=== PATIENT | male | born 1990 | race Caucasian/White ===

== ENCOUNTER 2018-01-12 22:40 | Emergency (ER) | payer SELFPAY ==
[2018-01-12] MEDS ORDERED: Ketorolac TAB * 10 MG TAB PO PRN (23:50)
[2018-01-12] MEDS ORDERED: Sulfamethox/Trimethoprim DS 800/160* TAB PO ONE (23:56)
[2018-01-12] MEDS ORDERED: Cephalexin CAP* 500 MG PO ONE (23:56)
--- NOTE | 2018-01-13 | ED ---
Lower Extremity - HPI Summary HPI Summary: Complains of pain, spreading erythema after sliver in base of left foot yesterday. Patient states he extracted a unknown foreign body from sole of left foot. Denies fever, cough, sore throat, N/V, CP, SOB, abdominal pain, change in urinary BM. Medical history is none. - History of Current Complaint Chief Complaint: EDExtremityLower Stated Complaint: LT FOOT INJURY Time Seen by Provider: 01/12/18 23:05 Hx Obtained From: Patient Onset of Pain: Immediate Onset/Duration: Hours Severity Initially: Mild Severity Currently: Severe Pain Intensity: 10 Pain Scale Used: 0-10 Numeric Timing: Constant Location: Is Discrete @ Character Of Pain: Sharp Associated Signs And Symptoms: Positive: Redness Aggravating Factor(s): Standing, Weight Bearing Alleviating Factor(s): Rest - Allergies/Home Medications Allergies/Adverse Reactions: Allergies Allergy/AdvReac Type Severity Reaction Status Date / Time bee venom protein (honey bee) Allergy Anaphylatic Verified 01/12/18 22:51 Shock PMH/Surg Hx/FS Hx/Imm Hx Endocrine/Hematology History: Denies: Hx Anticoagulant Therapy, Hx Diabetes, Hx Thyroid Disease Cardiovascular History: Denies: Hx Hypertension Respiratory History: Denies: Hx Asthma, Hx Chronic Obstructive Pulmonary Disease (COPD) GI History: Denies: Hx Ulcer Neurological History: Denies: Hx CVA - Immunization History Immunizations Up to Date: Yes Infectious Disease History: No Infectious Disease History: Denies: Hx Hepatitis, Hx Human Immunodeficiency Virus (HIV), Traveled Outside the [place] in Last 30 Days - Social History Alcohol Use: Weekly Substance Use Type: Reports: Marijuana Smoking Status (MU): Never Smoked Tobacco Review of Systems Constitutional: Negative Eyes: Negative ENT: Negative Cardiovascular: Negative Respiratory: Negative Gastrointestinal: Negative Genitourinary: Negative Musculoskeletal: Negative Skin: Other Neurological: Negative Psychological: Normal All Other Systems Reviewed And Are Negative: Yes Physical Exam - Summary Physical Exam Summary: Area of localized cellulitis on sole of left foot with erythema spreading towards left arch. Tenderness to palpation. No evidence of purulent discharge. No presence of foreign body noted from external palpation. Triage Information Reviewed: Yes Vital Signs On Initial Exam: Initial Vitals Temp Pulse Resp BP Pulse Ox 98.7 F 65 19 153/69 100 01/12/18 22:48 01/12/18 22:48 01/12/18 22:48 01/12/18 22:48 01/12/18 22:48 Vital Signs Reviewed: Yes Appearance: Positive: Well-Appearing Skin: Positive: Warm Head/Face: Positive: Normal Head/Face Inspection Eyes: Positive: Normal Neck: Positive: Supple Respiratory/Lung Sounds: Positive: Clear to Auscultation Cardiovascular: Positive: Normal Abdomen Description: Positive: Nontender Musculoskeletal: Positive: Normal Neurological: Positive: Normal Psychiatric: Positive: Normal AVPU Assessment: Alert - [place] Coma Scale Best Eye Response: 4 - Spontaneous Best Motor Response: 6 - Obeys Commands Best Verbal Response: 5 - Oriented Coma Scale Total: 15 Diagnostics - Vital Signs Vital Signs Temp Pulse Resp BP Pulse Ox 01/12/18 22:48 98.7 F 65 19 153/69 100 - Laboratory Lab Statement: Any lab studies that have been ordered have been reviewed, and results considered in the medical decision making process. - Radiology foot Xray Interpretation: No Acute Changes - No foreign body noted Radiology Interpretation Completed By: ED Physician Lower Extremity Course/Dx - Course Course Of Treatment: Complains of pain, spreading erythema after sliver in base of left foot yesterday. Patient states he extracted a unknown foreign body from sole of left foot. Denies fever, cough, sore throat, N/V, CP, SOB, abdominal pain, change in urinary BM. Medical history is none. PE: Area of localized cellulitis on sole of left foot with erythema spreading towards left arch. Tenderness to palpation. No evidence of purulent discharge. No presence of foreign body noted from external palpation. Discussed patient with Dr. york who recommends Rx for Bactrim and Keflex. Patient started on Keflex and Bactrim here in the ED tonight. - Diagnoses Provider Diagnoses: Cellulitis Discharge - Sign-Out/Discharge Documenting (check all that apply): Patient Departure - Discharge Plan Condition: Stable Disposition: HOME Prescriptions: Cephalexin CAP* [Keflex CAP*] 500 mg PO TID 10 Days #30 cap Ketorolac TAB * [Toradol TAB *] 10 mg PO Q6H #16 tab Sulfamethox/Trimethoprim DS* [Bactrim DS 800/160 TAB*] 1 tab PO BID 10 Days #20 tab Patient Education Materials: Cellulitis (ED) Referrals: No Primary Care Phys,NOPCP [Primary Care Provider] - Rolf Ramos DPM [Doctor of Podiatric Medicine] - Additional Instructions: Take antibiotics as directed. Keep protected. If symptoms persist longer than 2-3 days follow-up with podiatry Dr Ramos Return to ED for any new or worsening symptoms - Billing Disposition and Condition Condition: STABLE Disposition: Home
[2018-01-13] MEDS ORDERED: Ibuprofen TAB* 600 MG ONE (00:27)
[2018-01-13 00:42] VITALS: BP 123/71
--- NOTE | 2018-01-13 09:30 | RAD ---
INDICATION: "Sliver" to the "bottom center of left foot". COMPARISON: None. TECHNIQUE: 3 views of the left foot were obtained. FINDINGS: The adequately corticated bones are properly aligned. Joint spaces appear maintained. No fracture, dislocation or focal bony abnormality is seen. IMPRESSION: Normal radiograph of the left foot. If the patient's symptoms persist, follow-up imaging is recommended.
== END 2018-01-13 00:30 | disposition home or self-care (01) ==
LOC: ED 22:40
DX: L03.116 Cellulitis of left lower limb (principal); Z91.030 Bee allergy status
CPT/HCPCS: 99282; A9270-GY

== ENCOUNTER 2018-07-03 23:55 | Emergency (ER) | payer BC ==
[2018-07-04] MEDS ORDERED: Ondansetron ODT TAB* 4 MG PO ONE (00:38)
[2018-07-04] MEDS ORDERED: NS 0.9% 1000 ML* 1,000 ML IV ONE (00:38)
[2018-07-04] MEDS ORDERED: Ondansetron INJ* 2 MG/ML VIAL ONE (00:44)
[2018-07-04] MEDS ORDERED: Ondansetron INJ* 2 MG/ML VIAL IV ONE (00:50)
[2018-07-04 01:06] LABS: Hematocrit 52 % (42-52); Hemoglobin 17.5 g/dl (14.0-18.0); Mean Corpuscular HGB Conc 33 g/dl (31-36); Mean Corpuscular Hemoglobin 31 pg (27-31); Mean Corpuscular Volume 92 fL (80-94); Mean Platelet Volume 7.1 fL (7.4-10.4); Platelet Count 252 10^3/ul (150-450); Red Blood Count 5.71 10^6/ul (4.00-5.40); Red Cell Distribution Width 13 % (10.5-15); White Blood Count 19.7 10^3/ul (3.5-10.8)
[2018-07-04] MEDS ORDERED: Metoclopramide IV* 5 MG/ML 2 ML VIAL ONE (01:18)
[2018-07-04] MEDS ORDERED: Metoclopramide IV* 5 MG/ML 2 ML VIAL IV ONE (01:18)
[2018-07-04 01:20] LABS: Albumin 5.1 g/dL (3.2-5.2); Albumin/Globulin Ratio 1.9 (1-3); BUN/Creatinine Ratio 19.4 (8-20); C Reactive Protein 5.17 mg/L (<8.01); Calcium 10.4 mg/dL (8.6-10.3); Globulin 2.7 g/dL (2-4); Potassium 4.1 mmol/L (3.5-5.0); Total Bilirubin 0.9 mg/dL (0.2-1.0); Total Protein 7.8 g/dL (6.4-8.9)
[2018-07-04 01:31] LABS: ABS Basophils 0 10^3/ul (0-0.2); ABS Eosinophils 0 10^3/ul (0-0.6); ABS Lymphocytes 0.5 10^3/ul (1.0-4.8); ABS Monocytes 0.8 10^3/ul (0-0.8); ABS Neutrophils 18.3 10^3/ul (1.5-7.7); ABS Nucleated RBC 0 10^3/ul; Eosinophil % 0.1 %; Lymphocyte % 2.4 %; Nucleated Red Blood Cells % 0
--- NOTE | 2018-07-04 02:11 | ED ---
Nausea/Vomiting/Diarrhea HPI - HPI Summary HPI Summary: Patient complains of sudden onset nausea vomiting and diarrhea starting at 6:30 PM today. States he was feeling fine before. Denies foreign travel, contact exposure, unusual food, fever, cough, sore throat, CP, SOB, abdominal pain, change in urine. Medical history is none. Abdominal surgical history is none. - History of Current Complaint Chief Complaint: EDNauseaVomitDiarrh Stated Complaint: VOMITING Time Seen by Provider: 07/04/18 00:33 Hx Obtained From: Patient Onset/Duration: Sudden Onset, Lasting Hours Severity Currently: None Pain Intensity: 0 Pain Scale Used: 0-10 Numeric Aggravating Factor(s): Nothing Alleviating Factor(s): Nothing Nausea/Vomiting Presence: Nauseated, Vomiting Vomiting Frequency: Every 15-60 minutes Nausea/Vomiting Duration: 0-12 hours Vomiting Characteristics: Nonbilious Diarrhea Presence: Yes Diarrhea Frequency: Every 15-60 minutes Diarrhea Duration: 0-12 hours Diarrhea Characteristics: Watery - Allergies/Home Medications Allergies/Adverse Reactions: Allergies Allergy/AdvReac Type Severity Reaction Status Date / Time bee venom protein (honey bee) Allergy Anaphylatic Verified 07/04/18 00:03 Shock PMH/Surg Hx/FS Hx/Imm Hx Endocrine/Hematology History: Denies: Hx Anticoagulant Therapy, Hx Diabetes, Hx Thyroid Disease Cardiovascular History: Denies: Hx Hypertension Respiratory History: Denies: Hx Asthma, Hx Chronic Obstructive Pulmonary Disease (COPD) GI History: Denies: Hx Ulcer History: Denies: Hx Dialysis Sensory History: Denies: Hx Eye Prosthesis Neurological History: Denies: Hx CVA, Hx Developmental Delay Psychiatric History: Denies: Hx Autism Infectious Disease History: No Infectious Disease History: Denies: Hx Hepatitis, Hx Human Immunodeficiency Virus (HIV), Traveled Outside the [place] in Last 30 Days - Social History Alcohol Use: Weekly Substance Use Type: Reports: Marijuana Smoking Status (MU): Never Smoked Tobacco Review of Systems Constitutional: Negative Eyes: Negative ENT: Negative Cardiovascular: Negative Respiratory: Negative Positive: Vomiting, Diarrhea, Nausea Genitourinary: Negative Musculoskeletal: Negative Skin: Negative Neurological: Negative Psychological: Normal All Other Systems Reviewed And Are Negative: Yes Physical Exam - Summary Physical Exam Summary: Abdominal exam unremarkable. Active N/V here in the ED. No active diarrhea. Triage Information Reviewed: Yes Vital Signs On Initial Exam: Initial Vitals Temp Pulse Resp BP Pulse Ox 95.4 F 88 18 139/110 100 07/03/18 23:59 07/03/18 23:59 07/03/18 23:59 07/03/18 23:59 07/03/18 23:59 Vital Signs Reviewed: Yes Appearance: Positive: Well-Appearing Skin: Positive: Warm Head/Face: Positive: Normal Head/Face Inspection Eyes: Positive: Normal Neck: Positive: Supple Respiratory/Lung Sounds: Positive: Clear to Auscultation Cardiovascular: Positive: Normal Abdomen Description: Positive: Nontender Musculoskeletal: Positive: Normal Neurological: Positive: Normal Psychiatric: Positive: Normal AVPU Assessment: Alert - [place] Coma Scale Best Eye Response: 4 - Spontaneous Best Motor Response: 6 - Obeys Commands Best Verbal Response: 5 - Oriented Coma Scale Total: 15 Diagnostics - Vital Signs Vital Signs Temp Pulse Resp BP Pulse Ox 07/04/18 01:04 68 100 07/04/18 00:31 77 170/114 99 07/04/18 00:30 85 100 07/03/18 23:59 95.4 F 88 18 139/110 100 - Laboratory Lab Results: Lab Results 07/04/18 07/04/18 Range/Units 00:58 00:58 WBC 19.7 H (3.5-10.8) 10^3/ul RBC 5.71 H (4.00-5.40) 10^6/ul Hgb 17.5 (14.0-18.0) g/dl Hct 52 (42-52) % MCV 92 (80-94) fL MCH 31 (27-31) pg MCHC 33 (31-36) g/dl RDW 13 (10.5-15) % Plt Count 252 (150-450) 10^3/ul MPV 7.1 L (7.4-10.4) fL Neut % (Auto) 93.1 % Lymph % (Auto) 2.4 % [place] % (Auto) 4.2 % Eos % (Auto) 0.1 % Baso % (Auto) 0.2 % Absolute Neuts (auto) 18.3 H (1.5-7.7) 10^3/ul Absolute Lymphs (auto) 0.5 L (1.0-4.8) 10^3/ul Absolute Monos (auto) 0.8 (0-0.8) 10^3/ul Absolute Eos (auto) 0 (0-0.6) 10^3/ul Absolute Basos (auto) 0 (0-0.2) 10^3/ul Absolute Nucleated RBC 0 10^3/ul Nucleated RBC % 0 Sodium 137 (135-145) mmol/L Potassium 4.1 (3.5-5.0) mmol/L Chloride 100 L (101-111) mmol/L Carbon Dioxide 23 (22-32) mmol/L Anion Gap 14 H (2-11) mmol/L BUN 20 (6-24) mg/dL Creatinine 1.03 (0.67-1.17) mg/dL Est GFR ( Amer) 104.0 (>60) Est GFR (Non-Af Amer) 86.0 (>60) BUN/Creatinine Ratio 19.4 (8-20) Glucose 185 H (70-100) mg/dL Calcium 10.4 H (8.6-10.3) mg/dL Total Bilirubin 0.90 (0.2-1.0) mg/dL AST 35 (13-39) U/L ALT 28 (7-52) U/L Alkaline Phosphatase 87 (34-104) U/L C-Reactive Protein 5.17 (<8.01) mg/L Total Protein 7.8 (6.4-8.9) g/dL Albumin 5.1 (3.2-5.2) g/dL Globulin 2.7 (2-4) g/dL Albumin/Globulin Ratio 1.9 (1-3) Result Diagrams: 07/04/18 00:58 07/04/18 00:58 Lab Statement: Any lab studies that have been ordered have been reviewed, and results considered in the medical decision making process. Naus/Vom/Diarrhea Course/Dx - Course Course Of Treatment: Patient complains of sudden onset nausea vomiting and diarrhea starting at 6:30 PM today. States he was feeling fine before. Denies foreign travel, contact exposure, unusual food, fever, cough, sore throat, CP, SOB, abdominal pain, change in urine. Medical history is none. Abdominal surgical history is none. Physical exam:Abdominal exam unremarkable. Active N/ V here in the ED. No active diarrhea. Vital signs within normal limits. WBC 19.7. Anion gap 14. N/V controlled with Zofran ODT 4 mg and Reglan 10 mg IV. 2 L of fluid given. Discussed patient with Dr. Gonzalez . Placed on medical history, physical exam. Patient could be discharged home with antiemetic medication. Patient understands and approves of plan. - Differential Dx/Diagnosis Provider Diagnosis: Nausea vomiting and diarrhea Condition At Discharge: Stable Discharge - Sign-Out/Discharge Documenting (check all that apply): Patient Departure - Discharge Plan Condition: Stable Disposition: HOME Prescriptions: Metoclopramide TAB* [Reglan TAB*] 5 mg PO Q6H PRN 3 Days #12 tab PRN Reason: Nausea Ondansetron ODT TAB* [Zofran 4 MG Odt TAB*] 4 mg PO Q8H PRN 4 Days #14 tab.odt PRN Reason: Nausea Patient Education Materials: Acute Nausea and Vomiting (ED), Acute Diarrhea (ED ) Referrals: No Primary Care Phys,NOPCP [Primary Care Provider] - [facility] [Outside] Additional Instructions: Drink plenty of fluids to maintain hydration. Take Zofran under the tongue every 8 hours. If if nausea and vomiting not controlled you may add Reglan 10 mg by mouth every 6 hours. Return to the ED for any new or worsening symptoms - Billing Disposition and Condition Condition: STABLE Disposition: Home
[2018-07-04] MEDS ORDERED: Metoclopramide TAB* 10 MG PO ONE (02:17)
[2018-07-04 03:48] VITALS: BP 156/76
== END 2018-07-04 03:49 | disposition home or self-care (01) ==
LOC: ED 23:55
DX: R11.2 Nausea with vomiting, unspecified (principal); R19.7 Diarrhea, unspecified
CPT/HCPCS: 36415; 80053; 85025; 86140; 96361; 96374; 99283; A9270-GY; J2405; J2765

== ENCOUNTER 2018-09-27 15:09 | Emergency (ER) | payer BC ==
[2018-09-27 15:17] VITALS: BP 146/88
--- NOTE | 2018-09-27 15:33 | UC ---
UC General HPI - HPI Summary HPI Summary: 28-year-old male comes in wishing to be checked for STI's. He's asymptomatic. He does not know of any of his partners that have been positive for any STI. No fevers chills feels well. No rashes no lesions. - History of Current Complaint Chief Complaint: UCGeneralIllness Stated Complaint: STD TESTING Time Seen by Provider: 09/27/18 15:20 Pain Intensity: 0 - Allergy/Home Medications Allergies/Adverse Reactions: Allergies Allergy/AdvReac Type Severity Reaction Status Date / Time bee venom protein (honey bee) Allergy Anaphylatic Verified 09/27/18 15:17 Shock Home Medications: Home Medications EPINEPHrine [Epipen 2-Rajesh] 0.3 mg INJ ONCE 09/27/18 [History Confirmed 09/27/18] PMH/Surg Hx/FS Hx/Imm Hx Previously Healthy: Yes Other History Of: Negative For: Anticoagulant Therapy - Surgical History Surgical History: None - Family History Known Family History: Positive: Non-Contributory - Social History Alcohol Use: Daily Substance Use Type: Marijuana Substance Use Comment - Amount & Last Used: weekly Smoking Status (MU): Current Some Day Smoker Type: Cigars Review of Systems All Other Systems Reviewed And Are Negative: Yes Constitutional: Positive: Negative Skin: Positive: Negative Eyes: Positive: Negative ENT: Positive: Negative Respiratory: Positive: Negative Cardiovascular: Positive: Negative Gastrointestinal: Positive: Negative Genitourinary: Positive: Negative. Negative: Dysuria, Frequency, Urgency, Vaginal/Penile Burning, Vaginal/Penile Itching, Vaginal/Penile Discharge, Vaginal/Penile Pain, Vaginal/Penile Tenderness, Ulceration/Lesion Motor: Positive: Negative Neurovascular: Positive: Negative Musculoskeletal: Positive: Negative Neurological: Positive: Negative Psychological: Positive: Negative Is Patient Immunocompromised?: No Physical Exam Triage Information Reviewed: Yes Appearance: Well-Appearing, No Pain Distress, Well-Nourished Vital Signs: Initial Vital Signs Temp 98.8 F 09/27/18 15:12 Pulse 85 09/27/18 15:12 Resp 16 09/27/18 15:12 BP 146/88 09/27/18 15:12 Pulse Ox 97 09/27/18 15:12 Vital Signs Reviewed: Yes Eye Exam: Normal Eyes: Positive: Conjunctiva Clear Neck exam: Normal Neck: Positive: Supple Respiratory: Positive: Lungs clear, Normal breath sounds, No respiratory distress Cardiovascular: Positive: RRR Abdomen Description: Positive: Nontender, Soft Bowel Sounds: Positive: Present Musculoskeletal Exam: Normal Musculoskeletal: Positive: Strength Intact, ROM Intact Neurological Exam: Normal Neurological: Positive: Alert, Muscle Tone Normal Psychological Exam: Normal Psychological: Positive: Age Appropriate Behavior Skin Exam: Normal Course/Dx - Diagnoses Provider Diagnosis: Routine screening for STI (sexually transmitted infection) Discharge - Sign-Out/Discharge Documenting (check all that apply): Patient Departure All imaging exams completed and their final reports reviewed: No Studies - Discharge Plan Condition: Stable Disposition: HOME Patient Education Materials: Safe Sex (ED) Ref[place]: [facility] [facility] [place]] Additional Instructions: FOLLOW UP WITH YOUR DOCTOR NEEDED. GET REEVALUATED SOONER IF YOUR CONDITION WORSENS OR ANY QUESTIONS OR CONCERNS. - Billing Disposition and Condition Condition: STABLE Disposition: Home
[2018-09-28 13:11] LABS: Hepatitis B Surface Antigen Nonreactive (Nonreactive)
[2018-09-28 13:32] LABS: Hepatitis C Antibody Nonreactive (Nonreactive)
--- NOTE | 2018-09-29 07:15 | UC ---
- Progress Note Progress Note: labs reviewed today Syphilis nonreactive, hepatitis B surface antigen nonreactive Hepatitis B core IgM and hepatitis A antibody IgM pending at this time At HCV indexe nonreactive HIV 1 and 2 antibody nonreactive Await final results No change in plan at this time. Course/Dx - Diagnoses Provider Diagnoses: Routine screening for STI (sexually transmitted infection) Discharge - Sign-Out/Discharge Documenting (check all that apply): Post-Discharge Follow Up All imaging exams completed and their final reports reviewed: No Studies - Discharge Plan Condition: Stable Disposition: HOME Patient Education Materials: Safe Sex (ED) Referrals: [facility] [place] [facility] [Outside] Additional Instructions: FOLLOW UP WITH YOUR DOCTOR NEEDED. GET REEVALUATED SOONER IF YOUR CONDITION WORSENS OR ANY QUESTIONS OR CONCERNS. - Billing Disposition and Condition Condition: STABLE Disposition: Home
[2018-09-30 13:20] LABS: Neisseria gonorrhoeae (GC) RNA Negative (Negative)
--- NOTE | 2018-09-30 16:15 | UC ---
- Progress Note Progress Note: 09/30/2018 GC/chlamydia : negative No change Juana Antonio PA-C Course/Dx - Diagnoses Provider Diagnoses: Routine screening for STI (sexually transmitted infection) Discharge - Sign-Out/Discharge Documenting (check all that apply): Post-Discharge Follow Up All imaging exams completed and their final reports reviewed: No Studies - Discharge Plan Condition: Stable Disposition: HOME Patient Education Materials: Safe Sex (ED) Referrals: [facility] [place] [facility] [Outside] Additional Instructions: FOLLOW UP WITH YOUR DOCTOR NEEDED. GET REEVALUATED SOONER IF YOUR CONDITION WORSENS OR ANY QUESTIONS OR CONCERNS. - Billing Disposition and Condition Condition: STABLE Disposition: Home
== END 2018-09-27 15:45 | disposition home or self-care (01) ==
LOC: UCEAST 15:09
DX: Z11.3 Encounter for screening for infections with a predominantly sexual mode of transmission (principal); F17.290 Nicotine dependence, other tobacco product, uncomplicated
CPT/HCPCS: 36415; 80074; 86592; 86703; 87491; 87591; 99211; G0463

== ENCOUNTER 2019-07-07 12:40 | Emergency (ER) | payer BC ==
[2019-07-07] MEDS ORDERED: Ondansetron INJ* 2 MG/ML VIAL IV ONE (13:04)
--- NOTE | 2019-07-07 13:08 | ED ---
Abdominal Pain/Male - HPI Summary HPI Summary: 29 y/o male presented to [facility] complaining of diffuse cramping abdominal pain present since 0130 today, 07/07/19. He feels nauseous and is dehydrated, noting a dry mouth. He also notes that he cannot even sip water without vomiting. He has not urinated recently and notes no congestion or cough. Symptoms currently rated 3/10 in severity. No previous similar episodes. No medications for treatment [employer]. - History of Current Complaint Chief Complaint: EDNauseaVomitDiarrh Stated Complaint: VOMITING/DIARREA PER PT Time Seen by Provider: 07/07/19 12:59 Hx Obtained From: Patient Onset/Duration: Lasting Hours, Still Present Timing: Lasting Hours Severity Currently: Mild Pain Intensity: 3 Pain Scale Used: 0-10 Numeric Location: Diffuse Character: Cramping Aggravating Factor(s): Food Alleviating Factor(s): Nothing Associated Signs And Symptoms: Positive: Urinary Symptoms - decreased urine output, Nausea, Vomiting, Other - positive dehydration, negative congestion. Negative: Cough - Allergies/Home Medications Allergies/Adverse Reactions: Allergies Allergy/AdvReac Type Severity Reaction Status Date / Time bee venom protein (honey bee) Allergy Anaphylatic Verified 07/07/19 12:46 Shock Home Medications: Home Medications Protein Supplement [Protein] 975 mg PO DAILY 07/07/19 [History Confirmed ] PMH/Surg Hx/FS Hx/Imm Hx Endocrine/Hematology History: Denies: Hx Anticoagulant Therapy, Hx Diabetes, Hx Thyroid Disease Cardiovascular History: Denies: Hx Hypertension Respiratory History: Denies: Hx Asthma, Hx Chronic Obstructive Pulmonary Disease (COPD) GI History: Denies: Hx Ulcer History: Denies: Hx Dialysis Sensory History: Denies: Hx Eye Prosthesis Opthamlomology History: Denies: Hx Eye Prosthesis Neurological History: Denies: Hx CVA, Hx Developmental Delay Psychiatric History: Denies: Hx Autism - Surgical History Surgical History: None Surgery Procedure, Year, and Place: none Infectious Disease History: No Infectious Disease History: Denies: Hx Hepatitis, Hx Human Immunodeficiency Virus (HIV), Traveled Outside the [place] in Last 30 Days - Family History Known Family History: Positive: Hypertension, Diabetes - grandfather, mother - Social History Alcohol Use: Daily Hx Substance Use: Yes Substance Use Type: Reports: Marijuana Substance Use Comment - Amount & Last Used: weekly Hx Tobacco Use: Yes Smoking Status (MU): Current Some Day Smoker Type: Cigars Review of Systems Positive: Other - dehydration Positive: Other - negative congestion Negative: Cough Positive: Abdominal Pain - cramping, Vomiting, Nausea Positive: other - decreased urine output All Other Systems Reviewed And Are Negative: Yes Physical Exam - Summary Physical Exam Summary: Appearance: The patient is well-nourished in no acute distress and in no acute pain. Skin: The skin is warm and dry, and skin color reflects adequate perfusion. HEENT: The head is normocephalic and atraumatic. The pupils are equal and reactive. The conjunctivae are clear and without drainage. Nares are patent and without drainage. Mouth reveals moist mucous membranes, and the throat is without erythema and exudate. The external ears are intact. The ear canals are patent and without drainage. The tympanic membranes are intact. Neck: The neck is supple with full range of motion and non-tender. There are no carotid bruits. There is no neck vein distension. Respiratory: Chest is non-tender. Lungs are clear to auscultation and breath sounds are symmetrical and equal. Cardiovascular: Heart is regular rate and rhythm. There is no murmur or rub auscultated. There is no peripheral edema and pulses are symmetrical and equal. Abdomen: The abdomen is soft and non-tender. There are normal bowel sounds heard in all four quadrants and there is no organomegaly palpated. Musculoskeletal: There is no back tenderness noted. Extremities are non-tender with full range of motion. There is good capillary refill. There is no peripheral edema or calf tenderness elicited. Neurological: Patient is alert and oriented to person, place and time. The patient has symmetrical motor strength in all four extremities. Cranial nerves are grossly intact. Deep tendon reflexes are symmetrical and equal in all four extremities. Psychiatric: The patient has an appropriate affect and does not exhibit any anxiety or depression. Triage Information Reviewed: Yes Vital Signs On Initial Exam: Initial Vitals Temp Pulse Resp BP Pulse Ox 99.6 F 82 16 174/107 100 07/07/19 12:43 07/07/19 12:43 07/07/19 12:43 07/07/19 12:43 07/07/19 12:43 Vital Signs Reviewed: Yes Procedures - Sedation Patient Received Moderate/Deep Sedation with Procedure: No Diagnostics - Vital Signs Vital Signs Temp Pulse Resp BP Pulse Ox 01/06/20 12:43 99.6 F 82 16 174/107 100 - Laboratory Result Diagrams: 07/07/19 13:09 07/07/19 13:09 Lab Statement: Any lab studies that have been ordered have been reviewed, and results considered in the medical decision making process. Abdominal Pain Male Course/Dx - Course Course Of Treatment: Mr. Malloy presented with several days of nausea vomiting diarrhea. His abdomen was sore but this was a minor complaint. He was nontoxic in appearance with stable vital he was given IV fluids and Zofran while labs were obtained. He felt very much improved after the medications and fluids and I will give him a prescription for Zofran in case any of his nausea returns. - Diagnoses Provider Diagnoses: Gastroenteritis Discharge ED - Sign-Out/Discharge Documenting (check all that apply): Patient Departure - dc - Discharge Plan Condition: Stable Disposition: HOME Prescriptions: Ondansetron ODT TAB* [Zofran Odt TAB*] 4 mg PO Q6H PRN #20 tab.odt PRN Reason: Nausea/Vomiting Patient Education Materials: Gastroenteritis (ED) Referrals: Jerry Ireland NP [Primary Care Provider] - Additional Instructions: Follow up with your primary care provider in 1-3 days. If you experience new or worsening symptoms please return to the ER. - Billing Disposition and Condition Condition: STABLE Disposition: Home - Attestation Statements Document Initiated by [facility]: Yes Documenting Scribe: Jordana Pizarro Provider For Whom [facility] is Documenting (Include Credential): Adrian Ford MD Scribmarianne Attestation: Jordana Castro scribed for Adrian Ford MD on 07/07/19 at 2006. Scribe Documentation Reviewed: Yes Provider Attestation: The documentation as recorded by the Jordana lutz accurately reflects the service I personally performed and the decisions made by me, Adrian Ford MD Status of [facility] Document: Viewed
[2019-07-07 13:27] LABS: ABS Lymphocytes 0.2 10^3/ul (1.0-4.8); ABS Monocytes 1.1 10^3/ul (0-0.8); ABS Neutrophils 14.1 10^3/ul (1.5-7.7); Hematocrit 51 % (42-52); Hemoglobin 17.3 g/dL (14.0-18.0); Lymphocyte % 1.6 %; Mean Corpuscular HGB Conc 34 g/dL (31-36); Mean Corpuscular Hemoglobin 31 pg (27-31); Mean Corpuscular Volume 91 fL (80-94); Mean Platelet Volume 7.3 fL (7.4-10.4); Nucleated Red Blood Cells % 0.1; Platelet Count 251 10^3/uL (150-450); Red Blood Count 5.59 10^6 /uL (4.18-5.48); Red Cell Distribution Width 13 % (10-15); White Blood Count 15.5 10^3/uL (3.5-10.8)
[2019-07-07] MEDS: NS 0.9% 1000 ML** 2,000 ML IV ONE ×2 (13:27→14:50)
[2019-07-07 13:46] LABS: ALT 34 U/L (7-52); AST 39 U/L (13-39); Albumin 4.9 g/dL (3.2-5.2); Alkaline Phosphatase 75 U/L (34-104); Anion Gap 13 mmol/L (2-11); BUN/Creatinine Ratio 18.5 (8-20); Blood Urea Nitrogen 20 mg/dL (6-24); C Reactive Protein 25.87 mg/L (<8.01); CO2 Carbon Dioxide 21 mmol/L (22-32); Calcium 9.8 mg/dL (8.6-10.3); Chloride 104 mmol/L (101-111); EGFR African American 97.8 (>60); EGFR Non-African American 80.8 (>60); Globulin 2.4 g/dL (2-4); Glucose 179 mg/dL (70-100); Potassium 3.8 mmol/L (3.5-5.0); Sodium 138 mmol/L (135-145); Total Protein 7.3 g/dL (6.4-8.9)
[2019-07-07 15:43] VITALS: BP 142/79
== END 2019-07-07 16:07 | disposition home or self-care (01) ==
LOC: ED 12:40
DX: K52.9 Noninfective gastroenteritis and colitis, unspecified (principal); Z79.899 Other long term (current) drug therapy; Z72.0 Tobacco use; E86.0 Dehydration; R11.2 Nausea with vomiting, unspecified
CPT/HCPCS: 36415; 80053; 83605; 83690; 85025; 86140; 99283; J2405